=== PATIENT | male | born 1940 | race Caucasian/White ===

== ENCOUNTER 2017-03-13 21:06 | Emergency (ER) | payer MEDICARE, OTHER ==
[2017-03-13] MEDS ORDERED: Etomidate 2 MG/ML 10 ML SDV IVPUSH ONE (21:10)
[2017-03-13] MEDS ORDERED: Rocuronium 50 MG/5 ML Vial ONE (21:10)
[2017-03-13] MEDS ORDERED: Sodium Chloride 0.9% 1,000 ML IV SCH (21:10)
[2017-03-13] MEDS ORDERED: Succinylcholine 200 MG/10 ML MDV IV ONE (21:10)
[2017-03-13] MEDS ORDERED: fentaNYL 100 MCG/2 ML SDV IVPUSH ONE (21:17)
[2017-03-13 21:29] LABS: CHLORIDE,CL 106 mmol/L (98-109); SODIUM,NA 141 mmol/L (138-146)
--- NOTE | 2017-03-13 21:48 | EDM.PDOC ---
ED HPI GENERAL MEDICAL PROBLEM - General Chief Complaint: Neurological Problem Stated Complaint: found unresponsive by Time Seen by Provider: 03/13/17 21:28 Source of Information: Reports: Patient History Limitations: Reports: No Limitations - History of Present Illness INITIAL COMMENTS - FREE TEXT/NARRATIVE: Patient brought to the ER in an unresponsive state from [place]. According to report he was refilling their vehicle with Freon and when she went to check on him, found him collapsed, unresponsive with a large stain of freon on the ground. EMS did bring him in, started a large bore IV. He is unresponsive with asymmetrical pupils and snoring sounds Onset: Today, Sudden Onset Date: 03/13/17 Onset Time: 20:30 (exact time unknown) - Related Data Allergies Allergy/AdvReac Type Severity Reaction Status Date / Time Unable to Assess Allergy Unverified 03/13/17 22:08 Home Meds: Home Meds . [Unable to Verify Home Med List] 03/13/17 [History] ED ROS GENERAL - Review of Systems Review Of Systems: Unable To Obtain ED EXAM, NEURO - Physical Exam Exam: See Below Exam Limited By: Respiratory Distress (non responsive, is poor historian) General Appearance: Obtunded, Severe Distress Eye Exam: Bilateral Eye: Abnormal EOM, Abnormal Pupil (right pupil 1-2 mm, left 4-5 mm, nonresponsive) Throat/Mouth: Other (residual blood in airway from suctioning) Head Exam: Atraumatic, Normocephalic Neck: Normal Inspection, Supple, Non-Tender Respiratory/Chest: Lungs Clear, Normal Breath Sounds Cardiovascular: Normal Peripheral Pulses, Regular Rate, Rhythm, Systolic Murmur GI/Abdominal: Normal Bowel Sounds Neurological: No Response to Pain, Other Extremities: Normal Capillary Refill Skin Exam: Warm, Dry, Intact Course - Orders/Labs/Meds Orders: Active Orders 24 hr Category Date Time Status EKG 12 Lead [EKG Documentation Completion] [RC] STAT Care 03/13/17 21:33 Ordered Ventilator Assessment [RT Ventilator, Adult] [RC] Care 03/13/17 21:57 Ordered ASDIRECTED Chest 1V Frontal [CR] Routine Exams 03/13/17 21:28 Ordered Head wo Cont [CT] Stat Exams 03/13/17 21:52 Ordered CBC WITH AUTO DIFF [HEME] Routine Lab 03/13/17 21:18 Received MANUAL DIFFERENTIAL QA/NC [HEME] Routine Lab 03/13/17 21:18 Results OPIATES 9 DRUG CONF LC-MS/MS Stat Lab 03/13/17 21:37 Received Labs: Laboratory Tests 03/13/17 03/13/17 03/13/17 Range/Units 21:18 21:18 21:18 WBC 1.9 L* (4.0-10.0) x10^3/uL RBC 2.93 L (4.5-6.0) x10^6/uL Hgb 9.9 L (14.0-18.0) g/dL Hct 27.8 L (40.0-52.0) % MCV 94.9 H (78.0-93.0) fL MCH 33.8 H (26.0-32.0) pg MCHC 35.6 (32.0-36.0) g/dL RDW Coeff of [place] 13.9 (10.0-15.0) % Plt Count 33 L* (130-400) x10^3/uL Add Manual Diff Yes PT 12.2 (10.0-12.8) SEC INR 1.1 L (2.0-3.5) APTT 27.5 (24.0-36.0) SEC D-Dimer, Quantitative (<=0.58) mg/LFEU Sodium 141 (138-146) mmol/L Potassium 3.8 (3.5-4.9) mmol/L Chloride 106 (98-109) mmol/L Carbon Dioxide 25 (24-29) mmol/L BUN 22 (8-26) mg/dL Creatinine 0.9 (0.6-1.3) mg/dL Est Cr Clr Drug Dosing TNP Estimated GFR (MDRD) > 60 Glucose 189 H (70-105) mg/dL Calcium 7.9 L (8.5-10.1) mg/dL Corrected Calcium 8.54 (8.5-10.1) mg/dL Total Bilirubin 3.3 H (0.2-1.0) mg/dL AST 38 H (15-37) U/L ALT 25 (16-63) U/L Alkaline Phosphatase 108 (46-116) U/L Creatine Kinase 59 (39-308) U/L Creatine Kinase Index 0.8 (0.0-4.0) % CK-MB (CK-2) 0.5 (0.0-3.6) ng/mL POC Troponin I (0.00-0.08) ng/mL Troponin I Cancelled C-Reactive Protein (<=0.9) mg/dL B-Natriuretic Peptide 160 (<=450) pg/mL Total Protein 5.5 L (6.4-8.2) g/dL Albumin 3.2 L (3.4-5.0) g/dL Globulin 2.3 Albumin/Globulin Ratio 1.39 Urine Color (YELLOW) Urine Appearance (CLEAR) Urine pH (5.0-8.0) Ur Specific [place] Urine Protein (NEGATIVE) mg/dL Urine Glucose (UA) (NEGATIVE) mg/dL Urine Ketones (NEGATIVE) mg/dL Urine Occult Blood (NEGATIVE) Urine Nitrite (NEGATIVE) Urine Bilirubin (NEGATIVE) Urine Urobilinogen (0.2) EU/dL Ur Leukocyte Esterase (NEGATIVE) Urine RBC (NOT SEEN) /HPF Urine WBC (NOT SEEN) /HPF Ur Squamous Epith Cells (NEGATIVE) /HPF Urine Bacteria (NEGATIVE) /HPF Urine Mucus (NEGATIVE) /LPF Urine Opiates Screen (NEGATIVE) Ur Buprenorphine Scrn (NEGATIVE) Ur Oxycodone Screen (NEGATIVE) Urine Methadone Screen (NEGATIVE) Ur Barbituates Screen (NEGATIVE) Ur Tricyclics Screen (NEGATIVE) Ur Amphetamines Screen (NEGATIVE) U Methamphetamines Scrn (NEGATIVE) Urine MDMA Screen (NEGATIVE) U Benzodiazepines Scrn (NEGATIVE) Urine Cocaine Screen (NEGATIVE) U Marijuana (THC) Screen (NEGATIVE) 03/13/17 03/13/17 03/13/17 Range/Units 21:18 21:18 21:28 WBC (4.0-10.0) x10^3/uL RBC (4.5-6.0) x10^6/uL Hgb (14.0-18.0) g/dL Hct (40.0-52.0) % MCV (78.0-93.0) fL MCH (26.0-32.0) pg MCHC (32.0-36.0) g/dL RDW Coeff of [place] (10.0-15.0) % Plt Count (130-400) x10^3/uL Add Manual Diff PT (10.0-12.8) SEC INR (2.0-3.5) APTT (24.0-36.0) SEC D-Dimer, Quantitative 0.44 (<=0.58) mg/LFEU Sodium (138-146) mmol/L Potassium (3.5-4.9) mmol/L Chloride (98-109) mmol/L Carbon Dioxide (24-29) mmol/L BUN (8-26) mg/dL Creatinine (0.6-1.3) mg/dL Est Cr Clr Drug Dosing Estimated GFR (MDRD) Glucose (70-105) mg/dL Calcium (8.5-10.1) mg/dL Corrected Calcium (8.5-10.1) mg/dL Total Bilirubin (0.2-1.0) mg/dL AST (15-37) U/L ALT (16-63) U/L Alkaline Phosphatase (46-116) U/L Creatine Kinase (39-308) U/L Creatine Kinase Index (0.0-4.0) % CK-MB (CK-2) (0.0-3.6) ng/mL POC Troponin I 0.01 (0.00-0.08) ng/mL Troponin I C-Reactive Protein < 0.2 (<=0.9) mg/dL B-Natriuretic Peptide (<=450) pg/mL Total Protein (6.4-8.2) g/dL Albumin (3.4-5.0) g/dL Globulin Albumin/Globulin Ratio Urine Color (YELLOW) Urine Appearance (CLEAR) Urine pH (5.0-8.0) Ur Specific [place] Urine Protein (NEGATIVE) mg/dL Urine Glucose (UA) (NEGATIVE) mg/dL Urine Ketones (NEGATIVE) mg/dL Urine Occult Blood (NEGATIVE) Urine Nitrite (NEGATIVE) Urine Bilirubin (NEGATIVE) Urine Urobilinogen (0.2) EU/dL Ur Leukocyte Esterase (NEGATIVE) Urine RBC (NOT SEEN) /HPF Urine WBC (NOT SEEN) /HPF Ur Squamous Epith Cells (NEGATIVE) /HPF Urine Bacteria (NEGATIVE) /HPF Urine Mucus (NEGATIVE) /LPF Urine Opiates Screen (NEGATIVE) Ur Buprenorphine Scrn (NEGATIVE) Ur Oxycodone Screen (NEGATIVE) Urine Methadone Screen (NEGATIVE) Ur Barbituates Screen (NEGATIVE) Ur Tricyclics Screen (NEGATIVE) Ur Amphetamines Screen (NEGATIVE) U Methamphetamines Scrn (NEGATIVE) Urine MDMA Screen (NEGATIVE) U Benzodiazepines Scrn (NEGATIVE) Urine Cocaine Screen (NEGATIVE) U Marijuana (THC) Screen (NEGATIVE) 03/13/17 03/13/17 Range/Units 21:37 21:37 WBC (4.0-10.0) x10^3/uL RBC (4.5-6.0) x10^6/uL Hgb (14.0-18.0) g/dL Hct (40.0-52.0) % MCV (78.0-93.0) fL MCH (26.0-32.0) pg MCHC (32.0-36.0) g/dL RDW Coeff of [place] (10.0-15.0) % Plt Count (130-400) x10^3/uL Add Manual Diff PT (10.0-12.8) SEC INR (2.0-3.5) APTT (24.0-36.0) SEC D-Dimer, Quantitative (<=0.58) mg/LFEU Sodium (138-146) mmol/L Potassium (3.5-4.9) mmol/L Chloride (98-109) mmol/L Carbon Dioxide (24-29) mmol/L BUN (8-26) mg/dL Creatinine (0.6-1.3) mg/dL Est Cr Clr Drug Dosing Estimated GFR (MDRD) Glucose (70-105) mg/dL Calcium (8.5-10.1) mg/dL Corrected Calcium (8.5-10.1) mg/dL Total Bilirubin (0.2-1.0) mg/dL AST (15-37) U/L ALT (16-63) U/L Alkaline Phosphatase (46-116) U/L Creatine Kinase (39-308) U/L Creatine Kinase Index (0.0-4.0) % CK-MB (CK-2) (0.0-3.6) ng/mL POC Troponin I (0.00-0.08) ng/mL Troponin I C-Reactive Protein (<=0.9) mg/dL B-Natriuretic Peptide (<=450) pg/mL Total Protein (6.4-8.2) g/dL Albumin (3.4-5.0) g/dL Globulin Albumin/Globulin Ratio Urine Color Dark yellow H (YELLOW) Urine Appearance Slightly cloudy H (CLEAR) Urine pH 5.0 (5.0-8.0) Ur Specific [place] 1.025 Urine Protein Trace H (NEGATIVE) mg/dL Urine Glucose (UA) Negative (NEGATIVE) mg/dL Urine Ketones Negative (NEGATIVE) mg/dL Urine Occult Blood Moderate H (NEGATIVE) Urine Nitrite Negative (NEGATIVE) Urine Bilirubin Negative (NEGATIVE) Urine Urobilinogen 2.0 H (0.2) EU/dL Ur Leukocyte Esterase Negative (NEGATIVE) Urine RBC 0-5 (NOT SEEN) /HPF Urine WBC 0-5 (NOT SEEN) /HPF Ur Squamous Epith Cells Not seen (NEGATIVE) /HPF Urine Bacteria Not seen (NEGATIVE) /HPF Urine Mucus Rare H (NEGATIVE) /LPF Urine Opiates Screen Positive H (NEGATIVE) Ur Buprenorphine Scrn Negative (NEGATIVE) Ur Oxycodone Screen Negative (NEGATIVE) Urine Methadone Screen Negative (NEGATIVE) Ur Barbituates Screen Negative (NEGATIVE) Ur Tricyclics Screen Negative (NEGATIVE) Ur Amphetamines Screen Negative (NEGATIVE) U Methamphetamines Scrn Negative (NEGATIVE) Urine MDMA Screen Negative (NEGATIVE) U Benzodiazepines Scrn Negative (NEGATIVE) Urine Cocaine Screen Negative (NEGATIVE) U Marijuana (THC) Screen Negative (NEGATIVE) - Radiology Interpretation Free Text/Narrative:: chest x-ray shows possible bronchitis or inhalant pneumonitis Head CT shows large intracranial bleed - Re-Assessments/Exams Free Text/Narrative Re-Assessment/Exam: 03/13/17 22:[address] 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. Will accept patient, he is requesting the CT of the head to be done before he transfers out. Departure - Departure Time of Disposition: 21:54 Disposition: DC/Tfer to Acute Hospital 02 Condition: Poor Clinical Impression: Basal ganglia hemorrhage, Thalamic hemorrhage - Discharge Information Forms: Interfacility Transfer EMTALA - Problem List & Annotations (1) Basal ganglia hemorrhage SNOMED Code(s): 368095100 Code(s): I61.0 - NONTRAUMATIC INTCRBL HEMORRHAGE IN HEMISPHERE, SUBCORTICAL Status: Acute Priority: High Current Visit: Yes (2) Thalamic hemorrhage SNOMED Code(s): 866805719 Code(s): I61.0 - NONTRAUMATIC INTCRBL HEMORRHAGE IN HEMISPHERE, SUBCORTICAL Status: Acute Priority: High Current Visit: Yes - Problem List Review Problem List Initiated/Reviewed/Updated: Yes - My Orders Last 24 Hours: My Active Orders 03/13/17 21:18 CBC WITH AUTO DIFF [HEME] Routine MANUAL DIFFERENTIAL QA/NC [HEME] Routine 03/13/17 21:28 Chest 1V Frontal [CR] Routine 03/13/17 21:33 EKG 12 Lead [EKG Documentation Completion] [RC] STAT 03/13/17 21:37 OPIATES 9 DRUG CONF LC-MS/MS Stat 03/13/17 21:52 Head wo Cont [CT] Stat 03/13/17 21:57 Ventilator Assessment [RT Ventilator, Adult] [RC] ASDIRECTED - Assessment/Plan Last 24 Hours: My Active Orders 03/13/17 21:18 CBC WITH AUTO DIFF [HEME] Routine MANUAL DIFFERENTIAL QA/NC [HEME] Routine 03/13/17 21:28 Chest 1V Frontal [CR] Routine 03/13/17 21:33 EKG 12 Lead [EKG Documentation Completion] [RC] STAT 03/13/17 21:37 OPIATES 9 DRUG CONF LC-MS/MS Stat 03/13/17 21:52 Head wo Cont [CT] Stat 03/13/17 21:57 Ventilator Assessment [RT Ventilator, Adult] [RC] ASDIRECTED Assessment:: left basal ganglia, thalamic intraparenchymal hemorrhage subarachnoid blood subdural blood Plan: Transfer to [facility] in [place]. Dr. Hays aware and to accept care in the ICU
[2017-03-13 23:18] VITALS: BP 164/67
[2017-03-13] MEDS ORDERED: fentaNYL 100 MCG/2 ML SDV ONE (23:53)
[2017-03-13] MEDS ORDERED: Etomidate 2 MG/ML 10 ML SDV ONE (23:53)
[2017-03-13] MEDS ORDERED: Midazolam 1 MG/ML 2 ML SDV ONE (23:55)
== END 2017-03-13 21:50 | disposition short-term general hospital (02) ==
LOC: VM.ED 21:08
DX: I61.0 Nontraumatic intracerebral hemorrhage in hemisphere, subcortical (principal)
CPT/HCPCS: 31500; 36415; 51702; 70450; 71010; 80053; 80305; 81001; 82550; 82553; 83880; 84484; 85025; 85379; 85610; 85730; 86140; 94002; 96361; 96374; 96375; 99285; 99291; G0480; J0330; J2250; J3010